=== PATIENT | female | born 1945 | race Caucasian/White ===

== ENCOUNTER 2023-05-18 06:15 | Observation (INO) ==
--- NOTE | 2023-04-18 11:33 | PAT Medication Instructions ---
Medication Instructions Date of Service April 18, 2023 Home Medications bimatoprost 0.01 % eye drops (Lumigan) 1 drp ophthalmic (eye) PM ciprofloxacin HCl 0.3 % eye drops 1 drp OPB UD methotrexate sodium 2.5 mg tablet 10 mg PO WK Continue as directed ciprofloxacin HCl 0.3 % eye drops 1 drp OPB UD ASK your prescriber and surgeon methotrexate sodium 2.5 mg tablet 10 mg PO WK Take evening before surgery bimatoprost 0.01 % eye drops (Lumigan) 1 drp ophthalmic (eye) PM OTHERWISE NOTHING TO EAT OR DRINK AFTER MIDNIGHT Other Notes If you have any questions please call us at [phone] or [phone] or [phone] or [phone]
--- NOTE | 2023-04-22 10:28 | Anesthesiology Consultation ---
Date of Service April 22, 2023 Assessment & Plan (1) Encounter for pre-operative examination: - Infectious disease screening: Per assessment on 04/22/23: No known infectious disease contacts or current infectious disease symptoms. No noted recent Covid positive test result. - Outpatient joint assessment: Pt currently scheduled for inpatient pathway. If surgeon requests review for outpatient joint pathway, patient is not recommended candidate for outpatient joint program from anesthesia standpoint. - Patient acceptable risk for surgery pending surgeon-ordered PCP preop evaluation (Dr. Gabe Valles/Stefany, appt 04/25). Chart Review Chart Review: Patient seen in Pre Admission Testing Teaching & Discussion Pre-Anesthesia Teaching/Discussion Notes: Instructed NPO after midnight before surgery,except medications with 15 cc of water. Medication instructions provided according to the PAT guidelines. History Surgery Operation Date: 05/18/23 07:00 Proposed Procedures p Right Total Knee Arthroplasty - Jl Tirado MD Height/Weight Height: 5 ft 5 in Weight: 56.4 kg Allergies Allergy/AdvReac Type Severity Reaction Status Date / Time No Known Allergies Allergy Verified 04/18/23 10:57 Medications Home Medications Medication Instructions Recorded Confirmed Last Taken bimatoprost 0.01 % eye drops 1 drp ophthalmic (eye) PM 04/18/23 04/18/23 Unknown (Lumigan) ciprofloxacin HCl 0.3 % eye drops 1 drp OPB UD 04/18/23 04/18/23 Unknown methotrexate sodium 2.5 mg tablet 10 mg PO WK 04/18/23 04/18/23 Unknown Past Medical History Medical History Rheumatoid arthritis Osteoarthritis Glaucoma Exercise / Class Metabolic Activity III < 4 Walking/Shop/Light housework (one FS (no CP, very mild SOB)) Past Family History Family History Other No family history of adverse response to anesthesia Past Surgical History Surgical History History of repair of rotator cuff left H/O right knee surgery right meniscus repair History of colonoscopy History of cataract surgery right (scheduled to have Left cataract extraction 05/10/23 in [place]) Past Anesthesia History No Hx of Anesthesia Complications and No Family Hx of Anesthesia Complications (except son with post-op nausea) History of PONV History of PONV (Mild nausea) and Hx of Motion Sickness (Remote hx) Social History Smoking Status: Never smoker Do You Dip or Chew Tobacco: No Hx Alcohol Use: Yes Alcohol type: beer alcohol intake frequency: a few times a month Hx Substance Use: No substance use type: does not use Review of Systems Patient denies chest pain, shortness of breath, fever, chills, cough, wheezing, palpitations. Physical Exam Vital Signs VITALS BP 111/72 P 76 TEMP 97.4 SP02 97%RA RESP 18 PHYSICAL Decreased cervical extension range of motion. Full TMJ range of motion. TMD 3 finger breaths Mallampati Score 1 Dentition: upper plate Lungs: clear throughout to auscultation Cardiac: regular rate and rhythm, no murmurs noted Spine: normal Carotid arteries: negative bruit Extremities: no LE edema Lab Results Anesthesia Preop Results Results Anesthesia Widget: WBC 6.19 K/ul (4.8-10.8) 04/22/23 Hgb 12.6 g/dl (12.0-16.0) 04/22/23 Hct 37.5 % (37.0-47.0) 04/22/23 Plt 318 K/uL (130-400) 04/22/23 Na 139 mmol/L (136-145) 04/22/23 K 4.2 mmol/L (3.5-5.1) 04/22/23 Cl 103 mmol/L (98-107) 04/22/23 CO2 27 mmol/L (21-32) 04/22/23 BUN 20 mg/dl (6-23) 04/22/23 Creat 0.78 mg/dl (0.6-1.2) 04/22/23 Glucose Level 95 mg/dl (70-99(Fasting)) 04/22/23 PT 10.5 Seconds (9.0-12.0) 04/22/23 PTT 30 Seconds (21-31) 04/22/23 INR 1.0 (0.9-1.1) 04/22/23 Urine Color Yellow 04/22/23 Urine Appearance Clear (Clear) 04/22/23 Urine pH 5.5 (4.5-7.5) 04/22/23 Urine Specific [place] 1.020 (1.000-1.030) 04/22/23 Urine Protein 1+ (Negative) H 04/22/23 Urine Glucose (UA) Negative (Negative) 04/22/23 Urine Ketones 2+ (Negative) H 04/22/23 Urine Blood Negative (Negative) 04/22/23 Urine Nitrite Negative (Negative) 04/22/23 Urine Bilirubin Negative (Negative) 04/22/23 Urine Urobilinogen Negative (Negative) 04/22/23 Urine Leukocyte Esterase 1+ (Negative) H 04/22/23 Urine WBC (Auto) >30 /hpf (0-5) H 04/22/23 Urine RBC (Auto) 0-4 /hpf (0-4) 04/22/23 Urine Hyaline Casts (Auto) 1-5 /lpf (0-5) 04/22/23 Urine Epithelial Cells (Auto) 0-5 /lpf (0-5) 04/22/23 Urine Bacteria (Auto) 3+ (Negative) H 04/22/23 Blood Type O Positive 04/22/23 Antibody Screen NEGATIVE 04/22/23 Testing Laboratory Results Surgeon's office made aware of abnormal UA* Electrocardiogram Date: 03/22/23 SR at 75bpm. RBBB. RAD. Chest X-Ray Date: 04/22/23 Findings: + NAD Other Testing Cervical spine xray Date: 04/22/23 FINDINGS: Demineralized appearance of the bones. Straightening of the normal cervical lordosis. Multilevel degenerative changes of the cervical spine including moderate disc space narrowing and spondylitic spurring at C5-C6. Moderate to severe multilevel facet arthrosis with degenerative bony fusion of the C3-C4 facets. The predental interval appears normal. No prevertebral edema. Imaged lung laboy appear clear. IMPRESSION: No acute fracture, subluxation or osseous erosion identified. Degenerative changes as above.
[~2023-05-18 06:15] MED LIST: LR 500ML BOLUS, THEN 15ML/HR IV SCH; LR 60ML/HR IV SCH; ROPIVACAINE 0.5% HCL/PF 246 MG, Ketorolac (*for OR use only*) 30 MG, EPINEPHrine 30MG/3... INFIL SCH; TRANEXAMIC ACID 1,000 MG **IV Pre-op IV SCH; ceFAZolin 2000MG 2,000 MG/15 ML SYR IV SCH
--- NOTE | 2023-05-18 06:25 | History & Physical Bridge Note ---
Date of Service May 18, 2023 History & Physical Bridge Note I have examined the patient, reviewed the History & Physical and in the interval since the performance of the History & Physical I have noted the following changes of clinical significance: no changes noted. consent and site verified.
[2023-05-18] MEDS ORDERED: ROPIVACAINE 0.5% 5 MG/ML 30 ML VIAL ONE (07:19)
[2023-05-18] MEDS ORDERED: BUPIVACAINE 0.5 % 5 MG/1 ML PF 10ML VIAL ONE (07:19)
[2023-05-18] MEDS ORDERED: ePHEDrine sulfate 50 MG/ML AMP IV PRN (08:21)
[2023-05-18] MEDS ORDERED: ATROPINE SULFATE 0.1 MG/ML 10ML SYR IV PRN (08:21)
[2023-05-18] MEDS ORDERED: fentaNYL citrate PF 100 MCG/2 ML VIAL IV PRN (08:21)
[2023-05-18] MEDS ORDERED: ONDANSETRON INJ 2 MG/ML 2 ML VIAL IV PRN ×2 (08:21→13:40)
[2023-05-18] MEDS ORDERED: MIDAZOLAM HCL 1 MG/ML 2ML VIAL ONE (08:52)
[2023-05-18] MEDS ORDERED: PROPOFOL IV EMULSION 10 MG/ML 20 ML VIAL IV ONE (08:52)
[2023-05-18] MEDS ORDERED: fentaNYL citrate PF 100 MCG/2 ML VIAL ONE (08:52)
[2023-05-18] MEDS ORDERED: NEOSTIGMINE METHYLSULFATE 1 MG/ML 10ML VIAL ONE (08:53)
[2023-05-18] MEDS ORDERED: ORTHO JOINT ANESTHETIC ONE (09:30)
--- NOTE | 2023-05-18 11:32 | Post Operative Brief Note ---
Immediate Post Op Note v1 Date of Surgery May 18, 2023 Pre & Post Diagnosis Operation Date: 05/18/23 08:50 <No data on this case meets the specified criteria> Preop diagnosis osteoarthritis right knee with flexion contracture and valgus deformity postop diagnosis same right knee I identified the patient and participated in the time-out.: Yes Procedure Operation Date: 05/18/23 08:50 <No data on this case meets the specified criteria> Cemented right total knee replacement Surgeon Jl Tirado MD Medical Services Assistant Ольга/Ramon Estimated Blood Loss 25 Findings Consistent with Post-Op Diagnosis Severe DJD proximal tibial deformity chronic ACL insufficiency tricompartmental end-stage disease Fluids See anesthesia report Complications None
--- NOTE | 2023-05-18 11:36 | Operative Report ---
Post Operative Report Pre & Post Diagnosis Operation Date: 05/18/23 08:50 <No data on this case meets the specified criteria> Preop diagnosis severe osteoarthritis with valgus and flexion deformity right knee postop diagnosis same I identified the patient and participated in the time-out.: Yes Procedure Operation Date: 05/18/23 08:50 <No data on this case meets the specified criteria> Cemented right total knee replacement Surgeon Jl Tirado MD Technical Writing Lead/Mgr Ольга/Ramon Estimated Blood Loss 25 Findings Consistent with Post-Op Diagnosis Severe the DJD with valgus deformity chronic ACL insufficiency tricompartmental disease. Severe flexion contracture Fluids See anesthesia Specimens Bone pathology Drains None Complications None Indications Severe deformity and pain Description of Procedure After the patient was appropriate notified site provide consent provide antibiotics were given the right lower extremity was prepped and draped routine fashion. Tourniquet was inflated to 275 mmHg total of roughly 60 minutes. She has severe valgus and flexion deformity. Approximately 10 degrees of flexion and 7 degrees of valgus. After the tourniquet was inflated the midline incision was utilized appropriate parapatellar throughout any form synovectomy completed soft tissue releases performed. Distal femur was then resected 11 mm proximal tibia 5 mm the extension gap was excellent. The tibial and femur were then sized the femur was a size 5 narrow appropriate cutting block applied and the anterior posterior condylar and chamfer cuts made. Flexion gap was then checked after the tibia was cut. The tibial alignment guide was placed the tibia was subluxated was cut 5 based on the normal side. The extension and flexion gaps were excellent. Tibia was a size 4. Posterior capsule was then injected. The box cut was then made on the femur the femur trial to fit well 5 narrow looked good. The tibia was then broached and reamed to a size for the size 4 placed with a trial reduction with a 6 and 7 mm mm insert. The 7 provide a little more flexion deformity so elected to stick with a 6. Patella was then everted and resected leaving roughly 50 mm the seating was made for 38 and tracked well. Ortho mix was then injected about the knee all trial limits were removed Betadine soaked for 2 minutes and then wound irrigated and permanent cemented in position with tibia femur patella in that order a 12 minutes of tourniquet deflated no major bleeding encountered. At 14 minutes the knee was flexed the trial spacer removed no cement removal required and he was irrigated with Pulsavac Betadine permanent liner seated knee reduced and closed at 40 degrees of flexion with #2 Vicryl 2-0 Vicryl and standstill. Appropriate dressing ap plied the patient transferred to recovery in satisfactory addition he tolerated the procedure well. Summary of implants attune implants eTask.ituy rotating platform size 5 narrow femur size 4 tray size 38 patella 5 x 6 mm insert 2 bags of [place] G cement. EBL less than 25 cc crystalloid per anesthesia DVT prophylaxis per protocol. Bone pathology pending. I attest to the content of the Intraoperative Record and any orders documented therein. Any exceptions are noted below.
--- NOTE | 2023-05-18 11:39 | Discharge Summary ---
Date of Service May 19, 2023 Admission HPI Per Admitting Provider Severe pain right knee Principal Diagnosis Osteoarthritis right knee with flexion varus deformity Discharge Data Allergies Allergy/AdvReac Type Severity Reaction Status Date / Time No Known Allergies Allergy Verified 05/18/23 06:33 Consultations None Procedures Performed Operation Date: 05/18/23 08:50 <No data on this case meets the specified criteria> Cemented right total knee replacement Ordered Studies 05/18/23 05:00 US - OR guided needle placemen Routine Hospital Course (1) Status post right knee replacement: Continue care pathway home services. DVT prophylaxis per protocol. Start tomorrow. Total Time Total Time Spent Total Time Spent (In Minutes): 5 minutes Discharge Plan Discharge Items Reason For Visit: Right Knee Degenerative Joint Disease Discharge Diagnosis: same Condition on Discharge: Good Activity: Per Instructions section Lifting: Wait until after follow-up appointment Bathing: Keep incision dry Sexual Activity: Wait until after follow-up appointment Exercise/Sports: Wait until after follow-up appointment Call non-emergency contact if: your temperature is above 101.5, your wound has increased redness, your wound has increased drainage and your wound pain has increased Follow-up/Referrals: Jl Tirado MD [Surgeon] - Addtl Attending Provider Instructions: DIET: * Resume previous diet. MEDICATIONS: * Please take your prescriptions as instructed at your pre-op appointment a nd/or see medication discharge instructions listed above. * If concerns develop, call your physician's office at . SPECIAL CARE INSTRUCTIONS: * Ice/Elevate as instructed. * Keep dressing clean, dry, intact. * Your surgical extremity may be discolored due to prepping agents used on the skin. A bluish-green tint is a normal variant and should not cause alarm. Call your doctor at [phone] if: * Temperature above 101 degrees * Pain not relieved by pain medicine ordered * There is increased drainage or redness from any incision * You have any unanswered questions, problems or concerns. FOLLOW UP VISIT: * If not already scheduled, please call the office at to schedule a follow-up appointment. Pending Studies at Discharge: Yes (Bone pathology) Stand-Alone Forms: My [facility] Medications and DC Order Prescriptions: No Action methotrexate sodium 2.5 mg Tablet 10 mg PO WK Lumigan 0.01 % Drops 1 drp OPHTHALMIC (EYE) PM ciprofloxacin HCl 0.3 % Drops 1 drp OPB UD Rx Instructions: to take as directed following left cataract extraction that is scheduled for 05/10/23. Admission Data Admit Date/Time: 05/18/23 11:54 Attending Provider: Jl Tirado Admit Provider: Jl Tirado Primary Care Provider: Amarilys Ash
--- NOTE | 2023-05-18 11:40 | Orthopedic Progress Note ---
Date of Service May 18, 2023 Assessment & Plan (1) Status post right knee replacement: Plan: Continue care pathway home services. DVT prophylaxis per protocol. Start tomorrow. Plan Continue care pathway discharge tomorrow if she does well overnight. X-rays pending review post completion Orthopedic Progress Note Status post a right total knee replacement cemented. Did well with no major issues. Denies any chest pain shortness of breath fever chills nausea vomiting or headache. Wound dressing is applied clean dry and intact. Neurovascular check limited by spinal. Foot looks pink.
--- NOTE | 2023-05-18 11:43 | Operative Report ---
Post Operative Report Pre & Post Diagnosis Operation Date: 05/18/23 08:50 Pre-Op Diagnosis: Right Knee Degenerative Joint Disease Post-Op Diagnosis: Right Knee Degenerative Joint Disease I identified the patient and participated in the time-out.: Yes Procedure Operation Date: 05/18/23 08:50 Actual Procedures p Right Total Knee Arthroplasty(Right) - Jl Tirado MD Surgeon Jl Tirado MD Stave Cutting Supervisor Ольга/Ramon Estimated Blood Loss 25 Findings Consistent with Post-Op Diagnosis Same as postoperative diagnosis. Specimens The resected bone Description of Procedure Please see detailed operative note. I attest to the content of the Intraoperative Record and any orders documented therein. Any exceptions are noted below.
--- NOTE | 2023-05-18 11:47 | Operative Report ---
Post Operative Report Pre & Post Diagnosis Operation Date: 05/18/23 08:50 Pre-Op Diagnosis: Right Knee Degenerative Joint Disease Post-Op Diagnosis: Right Knee Degenerative Joint Disease I identified the patient and participated in the time-out.: Yes Procedure Operation Date: 05/18/23 08:50 Actual Procedures p Right Total Knee Arthroplasty(Right) - Jl Tirado MD Surgeon BRENDA Tirado MD Windows Vmware Engineer Dolores/Ramon SHELL Estimated Blood Loss 25 Findings Consistent with Post-Op Diagnosis see operative report Specimens see operative report Drains none Complications none Disposition Accompanied Patient To Recovery: Yes Indications This 77 year old female presented to the office complaints of persisting right knee pain. She had tried conservative care measures without improvement. She elected to proceed with surgical intervention after being educated about potential risks and outcomes. Preoperative imaging was obtained. Description of Procedure The patient was administered a spinal anesthetic and then taken to the operating room where she was given sedation. She was prepped and draped in the usual sterile fashion. Please see Dr. Tirado's operative report for specifics of the procedure. I was present for the entire case from initial patient positioning through final wound closure. Assistance was provided in tissue retraction, hemostasis, trial implant placement, final implant placement, and final wound closure. The patient was taken to the recovery room in satisfactory condition. I attest to the content of the Intraoperative Record and any orders documented therein. Any exceptions are noted below.
--- NOTE | 2023-05-18 11:57 | XRay Report ---
TWO VIEWS RIGHT KNEE CLINICAL HISTORY: Postoperative examination. FINDINGS: AP and crosstable lateral portable views of the right knee are obtained. A right knee arthr oplasty is in near anatomic alignment. There has been undersurface remodeling of the patella. No acut e fracture is seen. There are expected postoperative changes around the knee including skin clips, so ft tissue edema, and subcutaneous gas. IMPRESSION: Expected postoperative changes status post right knee arthroplasty. No acute fracture is seen. ACT 112: Negative or not required by law. Electronically signed by: Virgilio French M.D. 05/18/2023 11:56 AM
[2023-05-18] MEDS ORDERED: bisacodyL 10 MG SUPP PR PRN (13:40)
[2023-05-18] MEDS ORDERED: NALOXONE HCL 0.4 MG/1 ML VIAL/CARP IV PRN (13:40)
[2023-05-18] MEDS ORDERED: diphenhydrAMINE 50 MG/ML VIAL IV PRN (13:40)
[2023-05-18] MEDS ORDERED: HYDROmorphone INJ 0.5 MG/0.5 ML SYR IV PRN (13:40)
[2023-05-18] MEDS ORDERED: METOCLOPRAMIDE HCL INJ 5 MG/ML 2 ML VIAL IV PRN (13:40)
[2023-05-18] MEDS ORDERED: SODIUM CHLORIDE 0.9% 1,000 ML IV SCH (13:40)
[2023-05-18] MEDS ORDERED: oxyCODONE HCL IR 5 MG TAB (IMMEDIATE RELEASE) PO PRN (13:40)
[2023-05-18] MEDS ORDERED: metHOTREXate sodium 2.5 MG TAB PO SCH (13:40)
[2023-05-18] MEDS ORDERED: MAGNESIUM HYDROXIDE SUSP 30 ML UDC PO PRN (13:40)
--- NOTE | 2023-05-18 13:55 | Anesthesiology Progress Note ---
Date of Service May 18, 2023 Anesthesia Post Procedure Vital Signs Vital Signs: Temp Pulse Pulse Pulse Resp BP Pulse Ox 05/18/23 13:32 36.6 C 96 H 18 120/65 96 05/18/23 13:20 75 16 108/52 L 95 05/18/23 13:10 64 16 101/51 L 95 05/18/23 13:00 36.4 C L 72 12 108/56 L 97 05/18/23 12:50 73 18 111/63 95 05/18/23 12:40 75 15 114/53 L 93 05/18/23 12:30 74 15 110/56 L 99 05/18/23 12:20 36.5 C 83 17 121/58 L 96 05/18/23 12:10 69 16 114/52 L 100 05/18/23 12:00 81 16 114/50 L 100 05/18/23 11:50 72 16 117/59 L 100 05/18/23 11:42 36.4 C L 81 16 129/65 100 05/18/23 06:41 36.5 C 76 18 144/63 H 99 O2 Del Method O2 Flow Rate 05/18/23 13:32 Room Air 05/18/23 13:20 Room Air 05/18/23 13:10 Room Air 05/18/23 13:00 Room Air 05/18/23 12:50 Room Air 05/18/23 12:40 Room Air 05/18/23 12:30 Room Air 05/18/23 12:20 Room Air 05/18/23 12:10 Oxymask 4 05/18/23 12:00 Oxymask 4 05/18/23 11:50 Oxymask 4 05/18/23 11:42 Oxymask 6 05/18/23 06:41 Room Air Pain Intensity Right Knee: Pain Intensity: 7 Notes Mental Status: alert / awake / arousable Patient Amnestic to Procedure: Yes Nausea / Vomiting: adequately controlled Pain: adequately controlled Airway Patency, RR, SpO2: stable & adequate BP & HR: stable & adequate Hydration State: stable & adequate Neuraxial Anesthesia: was administered and sensory block is resolving Anesthetic Complications: no major complications apparent
[2023-05-18] MEDS: ACETAMINOPHEN 500 MG TAB PO SCH ×2 (14:29→22:35)
[2023-05-18] MEDS: KETOROLAC TROMETHAMINE 15 MG/ML VIAL IV SCH ×2 (14:30→20:01)
[2023-05-18] MEDS: CIPROFLOXACIN HCL 0.3% OP SOLN 2.5 ML BTL OPL SCH ×2 (16:09→20:00)
[2023-05-18] MEDS: LOTEPREDNOL ETABONATE 5 ML OPH SUSP OPL SCH ×2 (17:10→20:01)
[2023-05-18] MEDS: ASCORBIC ACID 500 MG TAB PO SCH (17:11)
[2023-05-18] MEDS: ceFAZolin 2000MG 2,000 MG/15 ML SYR IV SCH (17:11)
[2023-05-18] MEDS: FERROUS GLUCONATE 324 MG TAB PO SCH (17:11)
[2023-05-18] MEDS ORDERED: TRANEXAMIC ACID / 0.7% NACL 1,000 MG/100 ML BAG IV SCH (18:00)
[2023-05-18] MEDS: DOCUSATE SODIUM 100 MG CAP PO SCH (20:01)
[2023-05-18] MEDS ORDERED: BIMATOPROST 0.01% OP SOLN 2.5 ML BTL OP SCH (21:00)
[2023-05-18] MEDS ORDERED: SENNA 8.6 MG TAB PO SCH (21:00)
[2023-05-19] MEDS: ceFAZolin 2000MG 2,000 MG/15 ML SYR IV SCH (02:09)
[2023-05-19] MEDS: KETOROLAC TROMETHAMINE 15 MG/ML VIAL IV SCH ×2 (02:09→07:43)
[2023-05-19] MEDS: ACETAMINOPHEN 500 MG TAB PO SCH (05:27)
--- NOTE | 2023-05-19 06:34 | Orthopedic Progress Note ---
Date of Service May 19, 2023 Assessment & Plan Admission and Anticipated Discharge Date Admission Date: May 18, 2023 Orthopedic Progress Note Postop day #1 status post right total knee replacement. Patient resting comfortably in bed. She denies chest pain shortness of breath fever chills nausea vomiting or headache. Vital signs are stable she is afebrile. Neurovascular check femoral sciatic nerve is normal. Can do a straight leg raise. Can do ankle pumps well. Calves nontender. Flexes and with present dressing on easily to about 30 to 40 degrees. Morning laboratory work pending. Wound dressing clean dry and intact. Assessment doing well status post right total knee replacement. Start Eliquis this morning. Discharged home today after PT and dressing change by PA this morning. Follow-up in 2 weeks for sunil cortez. Emphasized the need to do range of motion exercises including the heel stretch roll to foster better knee extension based on the chronic flexion contracture and valgus alignment deformity she had of her knee. She states she understands.
[2023-05-19 06:35] LABS: Hematocrit (blood only) 29.5 % (37.0-47.0); Hemoglobin 9.9 g/dl (12.0-16.0); Mean Corpuscular Hemoglobin 31.3 pg (25.0-34.0); Mean Corpuscular Hgb Conc 33.6 g/dL (32.0-36.0); Mean Corpuscular Volume 93.4 fL (80.0-100.0); Mean Platelet Volume 9.3 fL (9.4-12.4); Platelet Count 291 K/uL (130-400); RDW Coefficient of Variation 13.6 % (11.5-14.5); RDW Standard Deviation 46.5 fL (36.4-46.3); Red Blood Count 3.16 M/uL (4.20-5.40); White Blood Count 6.68 K/ul (4.8-10.8)
[2023-05-19 07:12] LABS: BUN Creatinine Ratio 28.4 (10-20); Calcium 8.3 mg/dl (8.6-10.3); Creatinine Clr Calc Pharmacy 56.2 ml/min; Est GFR (African American) 89.9 ml/min; Est GFR (Non-African American) 77.6 ml/min
[2023-05-19] MEDS: FERROUS GLUCONATE 324 MG TAB PO SCH (07:42)
[2023-05-19] MEDS: ASCORBIC ACID 500 MG TAB PO SCH (07:43)
[2023-05-19] MEDS: LOTEPREDNOL ETABONATE 5 ML OPH SUSP OPL SCH (07:44)
[2023-05-19] MEDS: DOCUSATE SODIUM 100 MG CAP PO SCH (07:44)
[2023-05-19] MEDS: CIPROFLOXACIN HCL 0.3% OP SOLN 2.5 ML BTL OPL SCH (07:45)
[2023-05-19] MEDS ORDERED: dexAMETHasone 10 MG in SYRINGE 0 ML IV SCH (08:00)
--- NOTE | 2023-05-19 08:59 | Orthopedic Progress Note ---
Date of Service May 19, 2023 Assessment & Plan (1) Status post right knee replacement: Plan: The patient was educated regarding today's findings. Conservative care measures were discussed. Her current surgical dressings were changed by me. Sergio stocking was applied. She will leave the dressings in place until Tuesday. Home health can change them at that time as needed for soiling. She was reminded to use her walker when ambulating. Use the knee immobilizer today and tomorrow. Can discontinue it entirely on Tuesday morning. She will receive her Eliquis dose this morning. Continue with twice a day, starting this evening. Follow-up in the office on June 02 with me for staple removal. Importance of icing and elevating the leg was discussed. Written discharge instructions were provided. Call the office with any other concerns. Admission and Anticipated Discharge Date Admission Date: May 18, 2023 Subjective This 77-year-old female is seen today in her room. She is 1 day status post right total knee arthroplasty. She states she did well overnight. She slept fairly well. She feels ready to go home today. She is currently waiting for therapy. She denies any nausea, vomiting, abdominal pain, chest pain, or shortness of breath. She is sitting in her bedside chair at this time. Review of Systems Review of Systems: Unchanged from yesterday. Physical Exam Physical Exam: General: Well-developed, well-nourished, elderly female, in no acute distress. Sitting on a bedside chair. Alert and oriented. Skin: Warm and dry with good turgor. No rashes. She has a postsurgical dressing in place on the right knee. Upon removal, there is some dried blood on the inner dressings. She has no active bleeding at this time. Expected postoperative edema. No ecchymosis. Timothy are in place. Wound edges are well-approximated. Musculoskeletal: The patient has intact motor function of her toes, ankle, knee, and hip. She is able to perform straight leg raise. She has nearly full terminal extension. Flexion to around 70 degrees without difficulty. Neurologic: Gross sensation is intact across the right leg by soft touch. Peripheral pulses are 2+. Results & Data Vital Signs (Past 12 Hours) Vital Signs Temp Pulse Resp BP Pulse Ox O2 Del Method 05/19/23 07:08 36.6 C 72 16 116/78 99 Room Air 05/19/23 02:14 36.9 C 93 H 17 134/69 96 Room Air 05/18/23 23:59 Room Air 05/18/23 23:20 36.3 C L 85 17 106/65 98 Room Air Laboratory Results CBC obtained this morning shows a white count of 6.68. H&H of 9.9 and 29.5. Platelets 291,000. PRP shows sodium 137, potassium 4.0, chloride 108, carbon dioxide 23. Anion gap of 6. BUN 21 creatinine 0.74. Glucose 106.
[2023-05-19] MEDS ORDERED: MULTIVITAMIN TAB PO SCH (09:00)
[2023-05-19] MEDS ORDERED: APIXABAN 2.5 MG TAB PO SCH (09:00)
== END 2023-05-19 12:30 | disposition home health service (06) ==
LOC: ASU 06:15 → 3E 06:15

== ENCOUNTER 2024-05-30 06:33 | Observation (INO) ==
--- NOTE | 2024-05-21 10:33 | Anesthesiology Consultation ---
Date of Service May 21, 2024 Assessment & Plan (1) Encounter for pre-operative examination: - Infectious disease screening: Per assessment on 05/17/24- No known recent infectious disease contacts. Recent bronchitis ([facility] 05/14/24). She was started on prednisone (to finish ~05/21/24) and albuterol inhaler. Per PAT RN phone interview 05/17/24, symptoms improving and patient feeling better. Patient advised to contact surgeon/PAT if symptoms not at baseline prior to surgery. - Outpatient joint assessment: Pt currently scheduled for inpatient pathway. If surgeon requests review for outpatient joint pathway, patient is not recommended candidate for outpatient joint program from anesthesia standpoint based on available information. - S/P Right TKA (05/18/2023): SAB at L4-5 (1 attempt) + regional at [facility] - Cardiology note/visit (05/17/24): "..Medically stable for this procedure and anesthetic agent. Patient is low cardiac risk. Patient is able to complete 4.0 METS without anginal symptoms." - PCP visit (05/23/24): "Patient is a low risk for the above-stated surgery." Chart Review Chart Review: Acceptable Risk for Surgery and Patient NOT seen in Pre Admission Testing History Surgery Operation Date: 05/30/24 08:50 Proposed Procedures p Left Total Knee Arthroplasty - Jl Tirado MD Height/Weight Height: 5 ft 4.65 in Weight: 57.8 kg Allergies Allergy/AdvReac Type Severity Reaction Status Date / Time No Known Allergies Allergy Verified 05/17/24 11:09 Medications Home Medications Medication Instructions Recorded Confirmed Last Taken bimatoprost 0.01 % eye drops 1 drp ophthalmic (eye) PM 04/18/23 05/17/24 05/17/23 23:00 (Sandip) methotrexate sodium 2.5 mg tablet 12.5 mg PO WK 04/18/23 05/17/24 05/05/23 albuterol sulfate 90 mcg/actuation 1 inh inhalation QID acute 05/17/24 05/17/24 Unknown aerosol inhaler bronchitis meloxicam 7.5 mg tablet 7.5 mg PO QAM 05/17/24 05/17/24 Unknown methylprednisolone 4 mg tablets in 4 mg PO DAILY acute bronchitis 05/17/24 05/17/24 Unknown a dose pack Past Medical History Medical History (Updated 05/21/24 @ 10:30 by Catherine Ford) Glaucoma Hyperlipemia Follows with [facility] Osteoarthritis RBBB Follows with [facility] Rheumatoid arthritis MTX weekly Past Family History Family History Other No family history of adverse response to anesthesia Past Surgical History Surgical History (Updated 05/21/24 @ 10:30 by Catherine Ford) H/O right knee surgery right meniscus repair History of cataract surgery R/L History of colonoscopy History of repair of rotator cuff left History of total knee replacement Right TKA (05/18/2023): SAB at L4-5 (1 attempt) + regional at [facility] Social History Smoking Status: Never smoker Do You Dip or Chew Tobacco: No Hx Alcohol Use: Yes Alcohol type: beer alcohol intake frequency: a few times a month Hx Substance Use: No substance use type: does not use Lab Results Anesthesia Preop Results Results Anesthesia Widget: WBC 7.02 K/ul (4.8-10.8) 05/07/24 Hgb 12.7 g/dl (12.0-16.0) 05/07/24 Hct 39.0 % (37.0-47.0) 05/07/24 Plt 332 K/uL (130-400) 05/07/24 Na 141 mmol/L (136-145) 05/07/24 K 4.8 mmol/L (3.5-5.1) 05/07/24 Cl 105 mmol/L (98-107) 05/07/24 CO2 31 mmol/L (21-32) 05/07/24 BUN 18 mg/dl (6-23) 05/07/24 Creat 0.70 mg/dl (0.6-1.2) 05/07/24 Glucose Level 101 mg/dl (70-99(Fasting)) H 05/07/24 PT 9.8 Seconds (9.0-12.0) 05/07/24 PTT 27 Seconds (21-31) 05/07/24 INR 0.9 (0.9-1.1) 05/07/24 Urine Color Ingham 05/07/24 Urine Appearance Clear (Clear) 05/07/24 Urine pH 6.5 (4.5-7.5) 05/07/24 Urine Specific Madison 1.012 (1.000-1.030) 05/07/24 Urine Protein Negative (Negative) 05/07/24 Urine Glucose (UA) Negative (Negative) 05/07/24 Urine Ketones Negative (Negative) 05/07/24 Urine Blood Negative (Negative) 05/07/24 Urine Nitrite Negative (Negative) 05/07/24 Urine Bilirubin Negative (Negative) 05/07/24 Urine Urobilinogen Negative (Negative) 05/07/24 Urine Leukocyte Esterase Negative (Negative) 05/07/24 Blood Type O Positive 05/07/24 Antibody Screen NEGATIVE 05/07/24 Testing Electrocardiogram Date: 05/07/24 NSR with sinus arrhythmia at 80bpm. RBBB. Chest X-Ray Date: 05/07/24 FINDINGS: Lung volumes are normal. Lungs are clear. There is no pneumothorax or pleural effusion. Cardiac size is normal. Mediastinal contours are normal. There is no evidence for pulmonary edema. IMPRESSION: No acute cardiopulmonary findings. Echocardiogram Date: 05/2019 "05/2019 ECHO- LVEF 55-60%, AoR 3.0 cm, PAP 19 mmHg, mild TR, thickened AV, thickened MV, DD grade 1" *Echo findings noted per 05/17/24 cardiology office visit note. Attempts to obtain official report unsuccessful*
--- NOTE | 2024-05-30 05:22 | History & Physical Bridge Note ---
Date of Service May 30, 2024 History & Physical Bridge Note I have examined the patient, reviewed the History & Physical and in the interval since the performance of the History & Physical I have noted the following changes of clinical significance: no changes noted
[~2024-05-30 06:33] MED LIST changes: +BUPIVACAINE 0.5 % 5 MG/1 ML PF 10ML VIAL ONE; -LR 500ML BOLUS, THEN 15ML/HR IV SCH; -LR 60ML/HR IV SCH; +ROPIVACAINE 0.5% 5 MG/ML 30 ML VIAL ONE; -ROPIVACAINE 0.5% HCL/PF 246 MG, Ketorolac (*for OR use only*) 30 MG, EPINEPHrine 30MG/3... INFIL SCH; -TRANEXAMIC ACID 1,000 MG **IV Pre-op IV SCH; -ceFAZolin 2000MG 2,000 MG/15 ML SYR IV SCH
--- OUTSIDE RECORDS SUMMARY | 2024-05-30 06:42 | External Medical Summary | Continuity of Care Document ---
Author Name Unknown Organization [facility] [address] [place], [place] [address]A Address [address] [place] [phone] Care Team Providers Care Supervisor Tumbling And Rolling Name Role Phone Amarilys Keen Primary Care Physician [phone] Encounter [facility] [id number] Date(s): 05/07/24 - 05/07/24 [facility] [address] [place] [id number] [facility] [address] [place] [id number] Encounter Diagnosis Left knee DJD(Discharge Diagnosis) - 05/07/24 Discharge Disposition: Home or Self Care Attending Physician: SULEMAN Navarro, Omid Scherer Referring Physician: MD Celestino, Jl Phelps Allergies, Adverse Reactions, Alerts No Known Allergies Medications amoxicillin 500 mg oral capsule Start: 07/11/23 9:50:00 AM EST, 4 cap, PO, As indicated, Disp# 12 cap, Refills: 3, one hour before dental and other procedures as directed, Pharmacy: [facility] #[id number] Start Date: 07/11/23 Status: Ordered folic acid Start: 05/07/24 9:00:00 AM EST Start Date: 05/07/24 Status: Ordered Lumigan 0.01% ophthalmic solution INSTILL 1 DROP INTO BOTH EYES AT BEDTIME Start Date: 02/05/22 Status: Ordered meloxicam 7.5 mg oral tablet Start: 01/16/24 9:38:00 AM EDT, 1 tab, PO, Daily Start Date: 01/16/24 Status: Ordered methotrexate 2.5 mg oral tablet take 4 tablets by mouth ONCE WEEKLY Start Date: 04/22/23 Status: Ordered Mental Status 05/07/24 Barriers to Learning one year None evide nt Mandatory Health Literacy Documentation Yes Health Literacy Communication Barriers N ever Primary Language Icelandic Problem List Condition Confirmation Course Effective Dates Status Health St atus Informant Degenerative arthritis of knee, bilateral Confirmed Active S/P total knee replacement Confirmed Active Left knee DJD Confirmed Active Diagnosis Diagnosis Type Effective Dates Health Status Cl inical Service Informant Left knee DJD Discharge Diagnosis 05/07/24 Procedures Procedure Date Related Diagnosis Body Site Status Total knee arthroplasty 1 05/18/23 Completed Arthroscopic repair of rotator cuff 2 Completed Bilateral cataracts 3 Com pleted 1Right 2Left 3January 2023 Vital Signs Most recent to oldest [Reference Range]: 1 Height 164.2 cm (05/07/24 9:02 AM) Patient Weight 57.8 kg (05/07/24 9:02 AM) Body Mass Index 21.44 kg/m2 (05/07/24 9:02 AM) Temperature [36.5-37.9 DegC] 36.5 DegC (05/07/24 9:02 AM) Respiratory Rate 20 br/min (05/07/24 9:02 AM) Blood Pressure 130/82mmHg (05/07/24 9:02 AM) Cuff Pulse Pressure 48 mmHg (05/07/24 9:02 AM) Social History Social History Type Response Smoking Status Never smoked cigaret wally Sex Female Sex Representation Female (finding) EKG study * Contributor_system, MUSE01: VERIFY, PERFORM Event Display: EKG Authored Date: Please click on link to see image. Pre-OP H & P * SULEMAN Cee, Amarilys R: PERFORM, MODIFY Event Display: Pre-OP H & P Authored Date: [id number] Name:NIALL MOHR I Patient Number:[id number] :1945 Date of Service:05/07/2024 Chief Complaint L tka pre op History of Present Illness Patient is here today for preoperative history and physical. She is scheduled to have a left total knee arthroplasty with Dr. Tirado on May 30, 2024. She has been having ongoing left knee pain for many years. Has progressively worsened over the last 6 to 12 months. She had a right total knee arthroplasty in May 2023 and has been doing very well with this. She states that her left knee hurts on a daily basis. It is stiff and limits her ability to walk comfortably on most days. She has pain at rest and occasional night discomfort that requires her to reposition. She has taken [id number] Tylenol and anti-inflammatories as needed. She is also been on prescription meloxicam. She has a history of rheumatoid arthritis. She denies any new injury to the left knee. Recent x-rays show degenerative joint disease with [id number] changes of the medial compartment, osteophyte formation, subchondral sclerosis of the knee. She has undergone previous adriana isone injections and viscosupplementation without any long-lasting effects. Due to her failed conservative treatment and progressively worsening symptoms she wishes to proceed with elective left total knee arthroplasty. Review of Systems Denies any recentfevers, chills or flulike symptoms. She has had a productive cough the last 2-3 weeks. Denies shortness of breath or chest pain. Has not been on medication or treated for this. Recommended she reach out to her family doctor for an appointment prior to surgery.He denies any lightheadedness, dizziness, syncopal episodes, headaches, migraines or seizures. Denies any bleeding or clotting disorders or history of DVT or pulmonary embolism. Denies any recent hospitalizations. Denies any history of metal sensitivity, latex allergy or MRSA. Denies any shortness of breath or chest pain. Denies abdominal pain, heartburn, indigestion, nausea, vomiting, diarrhea or constipation. Denies any urinary tract infections. Denies any hearing or vision changes. Denies any dental problems. Physical Exam Vitals & Measurements T:36.5C RR:20 BP:130/82 SpO2:97% HT:164.2cm WT:57.800kg(Dosing) WT:57.8kg BMI:21.44 Vitals:Last Updated 05/07/24 09:02 Date Temp BP Location Pulse RR SpO2 Pain 05/07/24 36.5 130/82 20 97 05/07/24 2 01/16/24 0 Height and Weight:Last Updated 05/07/24 09:02 Date BMI Wt(kg) Wt(lb) Method Ht(cm) (ft-in) Method 05/07/24 21.44 57.8 127 Standing Scale 164.2 5-4 01/16/24 20.76 57.2 126 Standing Scale 166 5-5 Standing 04/22/23 20.83 55 121 Standing Scale 162.5 5-4 Standing General:Well-dressed, well-nourished. Normal mood and affect. Alert and oriented x3. HEENT:Head: Atraumatic, normocephalic. Eyes: Extraocular movements intact, pupils equal round and reactive to light, sclera normal. Ears: Ears grossly normal, TMs are clear normal light reflex.Nose: Nares are patent bilaterally. Throat: Oropharynx clear, mucous membranes moist, good dentition, uvula midline. Neck:Supple, no lymphadenopathy, nontender palpation, full range of motion. Cardiac:Regular rate and rhythm, normal S1, S2. No murmurs, rubs or gallops appreciated. Lungs:Clear to auscultation bilaterally. No adventitious sounds. No accessory muscle use. Cough with deep breaths. No wheezing appreciated. Abdomen:Soft, nontender, nondistended, normal bowel sounds heard in all 4 quadrants. Extremities: Exam of her left knee: Skin is healthy and intact. No skin abrasions or excoriations. No effusion in the left knee. Medial joint line tenderness with palpation. Crepitation with flexion and extension. Strength is 5/5. She is able to independently straight leg raise with no extensor lag. Novarus and valgus instability at 0 and 30 degrees. Full ankle and hip range of motion without discomfort. Ambulates with a slight antalgic gait with no assistive device. Range of motion of the left knee is 0 degrees of extension to 120 degrees of flexion. No muscle atrophy noted. Diagnostic Results 4 views of her left knee were obtained today AP standing, AP and flexion, lateral merchant view andshow aezv-wu-[id number] changes tricompartmentally in the patellofemoral, medial and lateral joints. There is osteophyte formation and subchondral sclerosis. No evidence of acute bony abnormality such as fracture or dislocation. These x-rays were interpreted by myself and discussed with the patientwill be further reviewed by radiologist. Assessment/Plan 1.Left knee DJD Patient is scheduled for left total knee arthroplasty with Dr. Tirado on May 30, 2024. Risk and complications of the procedure were explained to the patient and include but are not limited to infection, pain, bleeding, scarring, nerve and blood vessel damage, wound problems, weakness, stiffness, incomplete relief of symptoms, hardware failure, fracture, wear, loosening, tendon or ligament injury, blood clots, embolisms, heart attack, stroke and . All questions were answered and informed consent was obtained. She does not need any formal preadmission testing but she will obtain a preoperative CBC, BMP, PT, PTT, type and screen, urinalysis, chest x-ray and EKG. She will need preoperative medical clearance and cardiac clearance prior to her surgery. She was instructed on the usage of the CHG wipes preoperatively. Postoperative course was discussed. She would like home health services after her procedure. Once home health is completed she will attend physical therapy closer to home in [place]. Postoperative appointments have been scheduled. She has a walker for use after surgery. We will prescribe Percocet and Eliquis for DVT prophylaxis at the time of discharge from the hospital. She understands and agrees with the plan. All questions were a nswered today. She knows to call with any further problems, questions or concerns. This chart was completed utilizing Traxer voice recognition software. Grammatical errors, random word insertions, pronoun errors, and in complete sentences are an occasional consequence of the system. Any questions or concerns about the content, text, or information contained within the body of this dictation should be addressed directly to the provider for clarification. Problem List/Past Medical History Ongoing Degenerative arthritis of knee, bilateral Left knee DJD S/P total knee replacement Rheumatoid arthritis Procedure/Surgical History Total knee arthroplasty| Service Date: 4Arthroscopic repair of rotator cuffBilateral cataracts Medications Home amoxicillin(amoxicillin 500 mg oral capsule), 2000 mg= 4 cap, PO, As indicated, 3 refills bimatoprost ophthalmic(Lumigan 0.01% ophthalmic solution) folic acid meloxicam(meloxicam 7.5 mg oral tablet), 7.5 mg= 1 tab, PO, Daily methotrexate(methotrexate 2.5 mg oral tablet) Allergies NKA Social History Denies any tobacco use or recreational drug use. Drinks approximately 2 alcoholic drinks per month occasionally. Family History Reviewed and noncontributory. Electronic Signature on File Electronically Reviewed/Signed by: Amarilys Cee PA-C Author Signature Dt/Tm:05/07/2024 02:06PM Division of Sports Medicine Electronically Reviewed/Signed by: Jl Tirado MD Cosigner Signature Dt/Tm: 05/07/2024 06:26 PM Cigarette Examiner for Clinical Affairs, [facility] Radha Professor in Orthopaedics Sales And Merchandising Associate, [facility] Patient Care team information Care Team Personnel Name: DO Keen Jennifer L Position: Referring Member Role: Primary Care Provider Address: [address] [place] [address] [place] Care Team Related Persons Name: HARRIS MOHR"
--- OUTSIDE RECORDS SUMMARY | 2024-05-30 06:42 | External Medical Summary | Continuity of Care Document ---
Author Name Unknown Organization [facility] [address] [place], [place] [address] Address [address] [place] [phone] Care Team Providers Care Cloth Presser Name Role Phone Amarilys Keen Primary Care Physician [phone] Encounter [facility] [id number] Date(s): 05/07/24 - 05/07/24 [facility] [address] [place] [id number] [facility] [address] [place] [id number] Encounter Diagnosis Left knee DJD(Discharge Diagnosis) - [...] and other procedures as directed, Pharmacy: [facility] #[id number] Start Date: 07/11/23 Status: Ordered folic acid [...] Literacy Communication Barriers N ever Primary Language Slovak Problem List Condition Confirmation Course Effective Dates [...] Display: Pre-OP H & P Authored Date: [id number] Name:NIALL MOHR I Patient Number:[id number] :1945 Date of Service:05/07/2024 Chief Complaint L [...] requires her to reposition. She has taken lsdh-plq-ezevnem Tylenol and anti-inflammatories as needed. She is also been on prescription meloxicam. She has a history of rheumatoid arthritis. She denies any new injury to the left knee. Recent x-rays show degenerative joint disease with kehn-mh-ogqt changes of the medial compartment, osteophyte formation, [...] AP and flexion, lateral merchant view andshow [id number] changes tricompartmentally in the patellofemoral, medial and [...] attend physical therapy closer to home in [place]. Postoperative appointments have been scheduled. She has a walker for use after surgery. We will prescribe Percocet and Eliquis for DVT prophylaxis at the time of discharge from the hospital. She understands and agrees with the plan. All questions were a nswered today. She knows to call with any further problems, questions or concerns. This chart was completed utilizing Signdat voice recognition software. Grammatical errors, random word [...] MD Cosigner Signature Dt/Tm: 05/07/2024 06:26 PM Mink Rancher for Clinical Affairs, [facility] Radha Professor in Orthopaedics Repair Manager, [facility] Sports Medicine [facility] Patient Care team information Care Team Personnel Name: DO Keen Jennifer L Position: Referring Member Role: Primary Care Provider Address: [address] [place] [address] [place] Care Team Related Persons Name: HARRIS MOHR"
[2024-05-30] MEDS ORDERED: fentaNYL citrate PF 100 MCG/2 ML VIAL ONE (07:21)
[2024-05-30] MEDS ORDERED: ONDANSETRON INJ 2 MG/ML 2 ML VIAL ONE (07:21)
[2024-05-30] MEDS ORDERED: MIDAZOLAM HCL 1 MG/ML 2ML VIAL ONE ×2 (07:21→08:49)
[2024-05-30] MEDS ORDERED: DEXAMETHASONE SOD INJ 4 MG/ML VIAL ONE ×2 (07:21→10:23)
[2024-05-30] MEDS ORDERED: PROPOFOL IV EMULSION 10 MG/ML 20 ML VIAL IV ONE ×3 (07:21→07:22)
[2024-05-30] MEDS: LR 500ML BOLUS, THEN 15ML/HR IV SCH (07:31)
[2024-05-30] MEDS: LR 60ML/HR IV SCH (07:31)
[2024-05-30] MEDS: TRANEXAMIC ACID 1,000 MG **IV Pre-op IV SCH (08:54)
[2024-05-30] MEDS ORDERED: ATROPINE SULFATE 0.1 MG/ML 10ML SYR IV PRN (09:23)
[2024-05-30] MEDS ORDERED: HYDROmorphone INJ 2 MG/ML SYR/VIAL IV PRN (09:23)
[2024-05-30] MEDS ORDERED: ePHEDrine sulfate 50 MG/ML AMP IV PRN (09:23)
[2024-05-30] MEDS ORDERED: fentaNYL citrate PF 100 MCG/2 ML VIAL IV PRN (09:23)
[2024-05-30] MEDS ORDERED: PROMETHAZINE HCL 6.25 MG in SODIUM CHLORIDE 0.9% 50 ML IV PRN (09:23)
[2024-05-30] MEDS ORDERED: ONDANSETRON INJ 2 MG/ML 2 ML VIAL IV PRN ×2 (09:23→13:58)
[2024-05-30] MEDS: ceFAZolin 2000MG 2,000 MG/15 ML SYR IV SCH ×2 (09:34→17:52)
[2024-05-30] MEDS: ROPIVACAINE 0.5% HCL/PF 246 MG, Ketorolac (*for OR use only*) 30 MG, EPINEPHrine 30MG/3... INFIL SCH (10:04)
[2024-05-30] MEDS ORDERED: ePHEDrine sulfate 50 MG/5 ML SYR ONE (10:07)
[2024-05-30] MEDS: TRANEXAMIC ACID 1,000 MG **IV Intra-op IV SCH (10:36)
[2024-05-30] MEDS: ORTHO JOINT ANESTHETIC ONE (10:43)
--- NOTE | 2024-05-30 11:02 | Post Operative Brief Note ---
Immediate Post Op Note Date of Surgery May 30, 2024 Pre & Post Diagnosis Operation Date: 05/30/24 08:50 Pre-Op Diagnosis: Left Knee Osteoarthritis Post-Op Diagnosis: Left Knee Osteoarthritis I identified the patient and participated in the time-out.: Yes Procedure Operation Date: 05/30/24 08:50 Actual Procedures p Left Total Knee Arthroplasty(Left) - Jl Tirado MD Surgeon Jl Tirado MD Oss Architect Ailyn/Ramon Estimated Blood Loss 50 Findings Consistent with Post-Op Diagnosis Tricompartmental osteoarthritis severe than tibiofemoral compartment medial laterally mild in the patellofemoral joint Fluids See anesthesia report Complications None
--- NOTE | 2024-05-30 11:05 | Operative Report ---
Post Operative Report Pre & Post Diagnosis Operation Date: 05/30/24 08:50 Pre-Op Diagnosis: Left Knee Osteoarthritis Post-Op Diagnosis: Left Knee Osteoarthritis I identified the patient and participated in the time-out.: Yes Procedure Operation Date: 05/30/24 08:50 Actual Procedures p Left Total Knee Arthroplasty(Left) - Jl Tirado MD Surgeon Jl Tirado MD Hand Sewer Shoes Ailyn/Ramon Estimated Blood Loss 50 Findings Consistent with Post-Op Diagnosis Severe tibiofemoral osteoarthritis mild patellofemoral joint Fluids See anesthesia report Specimens Bone pathology Drains None Complications None Indications Severe pain failed conservative management Description of Procedure After the patient was appropriate notified site verified consent verified antibiotics confirmed has been given the left lower extremity was prepped and draped in his routine fashion. Midline exposure to the knee was performed out the leg was exsanguinated with a rubber Esmarch bandage and tourniquet inflated to 275 mm millimeters of mercury for total of 49 minutes. Midline exposure utilized parapatellar tenotomy performed synovectomy completed osteophytes resected. Distal femur entered cruciates resected. The ACL was deficient for years. Distal femur cut 11 mm proximal tibia cut 4 mm the extension gap was excellent. Care was taken to make sure alignment was good on the posterior slope and in the midline of the tibia. Femur was sized to 5 appropriate cutting block applied and the anterior posterior, chamfer cuts then made. Flexion gap was excellent with a 6 mm spacer knee had good range of motion no flexion deformity. Posterior capsule was injected. The box cut was then made and the size 5 femur fit well. The tibia was sized to 4 appropriate cutting block applied pinned into position and appropriate reaming carried out once this was done trial reduction was carried out with a 6 cm excellent. Alignment was excellent varus valgus midrange stability was excellent full flexion stability was excellent extension was to 0. Patella was then sized to a 32 a 7/2 mm resection made in the seating was made and the trial fit well. Ortho mix was then injected all about the knee trial limits were then removed the wound irrigated with Pulsavac Betadine soaked in 4 roughly 3 minutes. Wound was then irrigated and cleaned out and then the permanent cemented in position tibia femur and patella in that order at 12 minutes the tourniquet was deflated no major bleeding encountered at 14 minutes the knee was inspected the trial of spacer removed no cement removal required. The knee was then irrigated 1 final time with Ortho mix Betadine and the permanent liner seated should be mentioned Ortho mix was injected all about the knee while we are waiting for the cement to cure. Once the permanent liner was seated after it was removed of the trial spacer no cement removal was required wound was irrigated 1 final time the knee reduced and closed the flexion with #2 Vicryl 2-0 Vicryl standstill clips appropriate dressing applied the patient transferred recovery in satisfactory descending tolerated the procedure well. Summary of implants DePuy ATT UNE knee system size 5 femur size 4 tibia size 5 spacer posterior cruciate substituting 6 mm thick 32 patella 2 bags Palacos G cement. EBL was 50 cc or less crystalloid per anesthesia pathology pending on bone DVT prophylaxis initiated tomorrow per protocol. I attest to the content of the Intraoperative Record and any orders documented therein. Any exceptions are noted below.
--- NOTE | 2024-05-30 11:07 | Discharge Summary ---
Date of Service May 31, 2024 Admission HPI Per Admitting Provider Admitted for left knee osteoarthritis underwent left total knee replacement cemented Principal Diagnosis Osteoarthritis left knee Discharge Data Allergies Allergy/AdvReac Type Severity Reaction Status Date / Time No Known Allergies Allergy Verified 05/30/24 06:50 Vaccinations None Consultations None Procedures Performed Operation Date: 05/30/24 08:50 Actual Procedures p Left Total Knee Arthroplasty(Left) - Jl Tirado MD Ordered Studies 05/30/24 05:00 US - OR guided needle placemen Routine Hospital Course (1) Status post left knee replacement: Care plan for total knee replacement Total Time Total Time Spent Total Time Spent (In Minutes): 5 minutes Discharge Plan Discharge Items Reason For Visit: Left Knee Osteoarthritis Discharge Diagnosis: Status post knee replacement left knee for osteoarthritis Follow-up/Referrals: [facility],Home Healthcare [Non-Staff] - Amarilys Ash D.O. [Primary Care Provider] - [facility],Referral Center [Non-Staff] - Tahir Attending Provider Instructions: DIET: * Resume previous diet. MEDICATIONS: * Please take your prescriptions as instructed at your pre-op appointment and/or see medication discharge instructions listed above. * If concerns develop, call your physician's office at . SPECIAL CARE INSTRUCTIONS: * Ice/Elevate as instructed. * Keep dressing clean, dry, intact. * Your surgical extremity may be discolored due to prepping agents used on the skin. A bluish-green tint is a normal variant and should not cause alarm. Call your doctor at [phone] if: * Temperature above 101 degrees * Pain not relieved by pain medicine ordered * There is increased drainage or redness from any incision * You have any unanswered questions, problems or concerns. FOLLOW UP VISIT: * If not already scheduled, please call the office at to schedule a follow-up appointment. Pending Studies at Discharge: Yes (bone pathology) Stand-Alone Forms: My [facility] Skilled Items Discharge Level of Care: Other Communicable Disease: No Discharge Prognosis: Stable Urinary Catheter: No Medications and DC Order Prescriptions: No Action methotrexate sodium 2.5 mg Tablet 12.5 mg PO WK Lum[place] 0.01 % Drops 1 drp OPHTHALMIC (EYE) PM meloxicam 7.5 mg Tablet 7.5 mg PO QAM albuterol sulfate 90 mcg/actuation Hfa Aerosol Inhaler 1 inh INHALATION QID folic acid 1 mg Tablet 1 mg PO DAILY Admission Data Admit Date/Time: 05/30/24 11:21 Attending Provider: Jl Tirado Admit Provider: Jl Tirado Primary Care Provider: Amarilys Ash Other Providers: [facility],Home Healthcare
--- NOTE | 2024-05-30 11:08 | Orthopedic Progress Note ---
Date of Service May 30, 2024 Orthopedic Progress Note Patient underwent elective left total knee replacement. Denies chest pain shortness of breath fever chills nausea vomiting headache. Vital signs are stable she is afebrile. Neurovascular check limited by block. X-ray pending. Family contacted.
--- NOTE | 2024-05-30 11:13 | Operative Report ---
Post Operative Report Pre & Post Diagnosis Operation Date: 05/30/24 08:50 Pre-Op Diagnosis: Left Knee Osteoarthritis Post-Op Diagnosis: Left Knee Osteoarthritis I identified the patient and participated in the time-out.: Yes Procedure Operation Date: 05/30/24 08:50 Actual Procedures p Left Total Knee Arthroplasty(Left) - Jl Tirado MD Surgeon BRENDA Tirado MD Armoring Machine Operator Ailyn/Ramon PAC Estimated Blood Loss 50 Findings Consistent with Post-Op Diagnosis see operative report Specimens see operative report Drains none Complications none Disposition Accompanied Patient To Recovery: Yes Indications This 78 year old female presented to the office with complaints of persisting left knee pain. She had tried conservative care measures without improvement. She elected to proceed with surgical intervention in hopes of improving her pain and function. Preoperative imaging was obtained. She has a history of previous right total knee arthroplasty and has done well with it. She elects to proceed with the same on the left. Description of Procedure The patient was administered a spinal anesthetic and then taken to the operating room where she was given sedation. She was prepped and draped in the usual sterile fashion. Please see Dr. Tirado's operative report for specifics of the procedure. I was present for the entire case from initial patient positioning through final wound closure. Assistance was provided in tissue retraction, hemostasis, trial implant placement, final implant placement, and final wound closure. The patient was taken to the recovery room in satisfactory condition. I attest to the content of the Intraoperative Record and any orders documented therein. Any exceptions are noted below.
--- NOTE | 2024-05-30 11:13 | Operative Report ---
Post Operative Report Pre & Post Diagnosis Operation Date: 05/30/24 08:50 Pre-Op Diagnosis: Left Knee Osteoarthritis Post-Op Diagnosis: Left Knee Osteoarthritis I identified the patient and participated in the time-out.: Yes Procedure Operation Date: 05/30/24 08:50 Actual Procedures p Left Total Knee Arthroplasty(Left) - Jl Tirado MD Surgeon Jl Tirado MD Senior Ecologist Ailyn/Ramon Estimated Blood Loss 50 Findings Consistent with Post-Op Diagnosis Specimens Bone pathology Description of Procedure Patient was brought to the operative suite where she underwent sedation after undergoing spinal anesthesia preoperatively. Left lower extremity was prepped and draped in the usual sterile fashion. A surgical timeout was performed. Patient underwent left total knee arthroplasty, please see Dr. Tirado's operative report for full details. I was present and assisted with patient positioning, limb positioning, surgical approach, hemostasis, soft tissue retraction, hardware placement, wound closure, postoperative dressing placement. The patient was awakened taken to the recovery with stable condition. I attest to the content of the Intraoperative Record and any orders documented therein. Any exceptions are noted below.
--- NOTE | 2024-05-30 11:28 | XRay Report ---
XR knee LT 1 or 2V routine CLINICAL HISTORY: S/P L TKA TECHNIQUE: 2 views of the left knee were obtained. Comparison: Comparison is made to knee radiographs 05/07/2024 FINDINGS: Patient is status post total knee arthroplasty with expected postsurgical changes including soft tiss ue swelling and subcutaneous emphysema. No periarticular lucency or hardware fracture is seen. IMPRESSION: Expected postoperative appearance status post placement of total knee arthroplasty. ACT 112: Negative or not required by law. Electronically signed by: Reuben Ng M.D. 05/30/2024 11:27 AM
[2024-05-30] MEDS ORDERED: NALOXONE HCL 0.4 MG/1 ML VIAL/CARP IV PRN (13:58)
[2024-05-30] MEDS ORDERED: oxyCODONE HCL IR 5 MG TAB (IMMEDIATE RELEASE) PO PRN (13:58)
[2024-05-30] MEDS ORDERED: MAGNESIUM HYDROXIDE SUSP 30 ML UDC PO PRN (13:58)
[2024-05-30] MEDS ORDERED: HYDROmorphone INJ 0.5 MG/0.5 ML SYR IV PRN (13:58)
[2024-05-30] MEDS ORDERED: ALUMINUM/MAGNESIUM SUSP 30 ML UDC PO PRN (13:58)
[2024-05-30] MEDS ORDERED: diphenhydrAMINE 50 MG/ML VIAL IV PRN (13:58)
[2024-05-30] MEDS ORDERED: bisacodyL 10 MG SUPP PR PRN (13:58)
[2024-05-30] MEDS ORDERED: METOCLOPRAMIDE HCL INJ 5 MG/ML 2 ML VIAL IV PRN (13:58)
[2024-05-30] MEDS ORDERED: VANCOMYCIN CONSULT ACTIVE PRN (13:58)
--- NOTE | 2024-05-30 13:58 | Anesthesiology Progress Note ---
Date of Service May 30, 2024 Anesthesia Post Procedure Vital Signs Vital Signs: Temp Pulse Resp BP BP Pulse Ox O2 Del Method 05/30/24 13:30 76 18 112/56 L 93 Room Air 05/30/24 13:15 72 17 110/54 L 93 Room Air 05/30/24 13:00 76 17 113/54 L 96 Room Air 05/30/24 12:50 69 19 108/58 L 97 Room Air 05/30/24 12:40 79 17 115/58 L 95 Room Air 05/30/24 12:30 72 12 105/49 L 98 Room Air 05/30/24 12:20 70 16 113/55 L 95 Room Air 05/30/24 12:10 36.4 C L 75 20 109/52 L 96 Room Air 05/30/24 12:00 68 20 106/54 L 98 Room Air 05/30/24 11:50 70 16 123/57 L 95 Room Air 05/30/24 11:40 63 20 114/62 97 Room Air 05/30/24 11:30 74 22 117/60 99 Room Air 05/30/24 11:20 73 18 119/60 100 Oxymask 05/30/24 11:10 36.4 C L 86 16 117/61 100 Oxymask 05/30/24 07:01 36.5 C 70 20 140/76 99 Room Air O2 Flow Rate 05/30/24 13:30 05/30/24 13:15 05/30/24 13:00 05/30/24 12:50 05/30/24 12:40 05/30/24 12:30 05/30/24 12:20 05/30/24 12:10 05/30/24 12:00 05/30/24 11:50 05/30/24 11:40 05/30/24 11:30 05/30/24 11:20 3 05/30/24 11:10 6 05/30/24 07:01 Transfer of Care Handoff Completed per policy Notes Mental Status: alert / awake / arousable and participated in evaluation Patient Amnestic to Procedure: Yes Nausea / Vomiting: adequately controlled Pain: adequately controlled Airway Patency, RR, SpO2: stable & adequate BP & HR: stable & adequate Hydration State: stable & adequate Anesthetic Complications: no major complications apparent
[2024-05-30] MEDS: ALBUTEROL HFA 8 GM INHALER INH SCH ×2 (14:14→15:08)
[2024-05-30] MEDS: ACETAMINOPHEN 500 MG TAB PO SCH (15:05)
[2024-05-30] MEDS: VANCOMYCIN HCL 750 MG in SODIUM CHLORIDE 0.9% 250 ML IV ONE (15:06)
[2024-05-30] MEDS ORDERED: ALBUTEROL HFA 8 GM INHALER INH PRN (16:00)
[2024-05-30] MEDS: KETOROLAC TROMETHAMINE 15 MG/ML VIAL IV SCH (16:02)
--- NOTE | 2024-05-30 16:40 | Orthopedic Progress Note ---
Date of Service May 30, 2024 Assessment & Plan Admission and Anticipated Discharge Date Admission Date: May 30, 2024 Orthopedic Progress Note Afternoon rounds status post left total knee replacement. Patient sitting up comfortably in bed. Denies chest pain shortness of breath fever chills nausea vomiting or headache. Vital signs are stable she is afebrile. Neurovascular check femoral sciatic nerve is normal. Can flex her knee easily to about 80 degrees. Can do straight leg raise with no lag. Wound dressing clean dry and intact. Postop x-rays look excellent with total knee replacement on the left. Assessment doing well eating and drinking well plan is to get her up and moving. Initiate anticoagulation tomorrow. Eating and drinking well we will saline lock IV fluid. Discharged home tomorrow with services.
[2024-05-30] MEDS: FERROUS GLUCONATE 324 MG TAB PO SCH (16:43)
[2024-05-30] MEDS: ASCORBIC ACID 500 MG TAB PO SCH (16:43)
[2024-05-30] MEDS: DOCUSATE SODIUM 100 MG CAP PO SCH (20:43)
[2024-05-30] MEDS: SENNA 8.6 MG TAB PO SCH (20:43)
[2024-05-30] MEDS: BIMATOPROST 0.01% OP SOLN 2.5 ML BTL OP SCH (20:44)
--- NOTE | 2024-05-31 06:37 | Orthopedic Progress Note ---
Date of Service May 31, 2024 Assessment & Plan Admission and Anticipated Discharge Date Admission Date: May 30, 2024 Orthopedic Progress Note Postop day #1 status post left total knee replacement. Patient resting comfortably in bed. She denies any chest pain shortness of breath fever chills nausea vomiting headache. Vital signs are stable she is afebrile. Neurovascular check femoral sciatic nerve is normal. Can do straight leg raise with good extension. Wound dressing clean dry and intact. Calves nontender. Assessment doing well status post left total knee replacement. Plan to discharge home today after PT initiation of anticoagulation. Dressing changed by PA this morning. Advised that she will get stiff and sore as some of the periarticular blocks were often continued to her exercises take the sheet home and to use the medication as prescribed. We will give her none Tylenol narcotics that she can use to 1000 mg Tylenol every 8 hours [id number] and then as needed use of the narcotic every 3-4 hours.
[2024-05-31 08:01] VITALS: BP 115/74; RESP 18; TEMP 97.5; O2SAT 97
[2024-05-31 08:07] LABS: Hematocrit (blood only) 31.3 % (37.0-47.0); Hemoglobin 10.3 g/dl (12.0-16.0); Mean Corpuscular Hemoglobin 31.8 pg (25.0-34.0); Mean Corpuscular Hgb Conc 32.9 g/dL (32.0-36.0); Mean Corpuscular Volume 96.6 fL (80.0-100.0); Mean Platelet Volume 9.9 fL (9.4-12.4); Platelet Count 231 K/uL (130-400); RDW Coefficient of Variation 13.7 % (11.5-14.5); RDW Standard Deviation 47.8 fL (36.4-46.3); Red Blood Count 3.24 M/uL (4.20-5.40); White Blood Count 10.47 K/ul (4.8-10.8)
[2024-05-31 08:15] LABS: BUN Creatinine Ratio 19.5 (10-20); Calcium 8.8 mg/dl (8.6-10.3); Creatinine Clr Calc Pharmacy 49.3 ml/min
[2024-05-31] MEDS: APIXABAN 2.5 MG TAB PO SCH (08:45)
[2024-05-31] MEDS: MULTIVITAMIN TAB PO SCH (08:45)
[2024-05-31] MEDS: FOLIC ACID 1 MG TAB PO SCH (08:45)
[2024-05-31] MEDS: dexAMETHasone 10 MG in SYRINGE 0 ML IV SCH (08:46)
--- NOTE | 2024-05-31 09:16 | Orthopedic Progress Note ---
Date of Service May 31, 2024 Assessment & Plan (1) Status post left knee replacement: Plan: The patient's dressings were changed today by me. SAMANTHA stocking was reapplied. She will leave this in place through the weekend. He can be changed on Tuesday by home health if needed for soiling. Importance of keeping the leg dry was discussed. She already has a cast bag for showering. Continue using the knee immobilizer when out of bed today and tomorrow. It can be discontinued entirely on Tuesday morning. Continue using the walker for ambulation. She has home health scheduled to start this weekend. Follow-up in the office in 2 weeks as scheduled for staple removal. Prescriptions for Eliquis and oxycodone IR have been sent to her pharmacy. Written discharge instructions were provided. Call with any other concerns. Admission and Anticipated Discharge Date Admission Date: May 30, 2024 Subjective This 78 year old female is seen this morning in her room. She is postop day 1 from left total knee arthroplasty. She is doing very well. She has already been out of bed and ambulatory. She states there is very little pain. She is anxious to be discharged today. She denies any chest pain, shortness of breath, nausea, vomiting, or abdominal pain. She thinks her recovery on this knee has been easier so far than the other side. Review of Systems Review of Systems: Unchanged from yesterday. Physical Exam Physical Exam: General: Well developed, well-nourished, elderly female, in no acute distress. Walking around her room with her walker and knee immobilizer. Alert and oriented. Gets herself back into bed easily without assistance. Skin: Warm and dry with good turgor. No rashes. Postsurgical dressings are in place on the left leg. Upon removal, she has minimal postoperative ecchymosis and edema. Her dressings are clean and dry. There is scant dried blood on her most inner dressings. Wound has no active drainage. [place] are in place. Wound edges are well-approximated. Musculoskeletal: The patient is able to perform a straight leg raise. She has intact motor function of her ankle and toes. She has full terminal extension. Flexion to greater than 70 degrees without difficulty. She is able to ambulate without assistance using her walker and knee immobilizer. Neurologic: Gross sensation is intact across the left leg by soft touch. Peripheral pulses are 2+. Results & Data Vital Signs (Past 12 Hours) Vital Signs Temp Pulse Resp BP Pulse Ox O2 Del Method 05/31/24 07:59 36.4 C L 75 18 115/74 97 Room Air 05/31/24 07:31 Room Air 05/31/24 03:21 36.6 C 75 16 123/66 96 Room Air 05/30/24 23:00 36.6 C 84 16 113/66 97 Room Air Laboratory Results CBC obtained this morning shows a white count of 10.47. H&H of 10.3 and 31.3. Platelets 231,000. PRP obtained this morning shows normal electrolytes. Potassium 4.0. BUN of 16 with creatinine 0.82. Glucose 99.
[2024-05-31 10:32] VITALS: PULSE 76
== END 2024-05-31 11:01 | disposition home health service (06) ==
LOC: ASU 06:33 → 3W 06:33